=== PATIENT | male | born 1980 | race American Indian/Alaskan Native ===

== ENCOUNTER 2019-02-01 15:08 | Emergency (ER) | payer MEDICAID ==
--- NOTE | 2019-02-01 15:48 | Emergency Department Report ---
Blank Doc - Documentation Documentation: 38-year-old male that presents with abdominal pain body aches, and diarrhea. HX of HIV. This initial assessment/diagnostic orders/clinical plan/treatment(s) is/are subject to change based on patient's health status, clinical progression and re- assessment by fellow clinical providers in the ED. Further treatment and workup at subsequent clinical providers discretion. Patient/guardians urged not to elope from the ED as their condition may be serious if not clinically assessed and managed. Initial orders include: 1- Patient sent to [facility] for further evaluation and treatment 2- labs 3- UA
[2019-02-01 16:30] LABS: Basophils % (Auto) 0.1 % (0.0-1.8); Eosinophils # (Auto) 0.1 K/mm3 (0.0-0.4); Eosinophils % (Auto) 0.9 % (0.0-4.3); Hematocrit 38.7 % (35.5-45.6); Hemoglobin 13.1 gm/dl (11.8-15.2); Lymphocytes % (Auto) 31.7 % (13.4-35.0); Mean Corpuscular HGB Conc 34 % (32-34); Mean Corpuscular Volume 95 fl (84-94); Monocytes # (Auto) 0.7 K/mm3 (0.0-0.8); Monocytes % (Auto) 7.1 % (0.0-7.3); Platelet Count 166 K/mm3 (140-440); Red Blood Count 4.07 M/mm3 (3.65-5.03); Red Cell Distribution Width 16.9 % (13.2-15.2)
[2019-02-01 16:42] LABS: Bilirubin,Urine NEG (Negative); Blood,Urine NEG (Negative); Color,Urine Yellow (Yellow); Mucus,Urine FEW /HPF
[2019-02-01 16:59] LABS: Alanine Aminotransferase 19 units/L (7-56); Albumin 3.9 g/dL (3.9-5); BUN/Creatinine Ratio 11; Blood Urea Nitrogen 9 mg/dL (9-20); Hemolysis Index 43
[2019-02-01] MEDS ORDERED: ONDANSETRON 4 MG ODT TAB PO ONE (19:34)
[2019-02-01] MEDS ORDERED: AMOXICILLIN/K CLAV 875/125MG TAB PO ONE (19:34)
[2019-02-01] MEDS ORDERED: oxyCODONE /ACETAMINOPHEN 5-325MG TAB PO ONE (19:34)
[2019-02-01 19:57] VITALS: BP 141/103
--- NOTE | 2019-02-01 20:03 | Emergency Department Report ---
ED General Adult HPI - General Chief complaint: Nausea/Vomiting/Diarrhea Stated complaint: PAIN ALL OVER Time Seen by Provider: 02/01/19 15:47 Source: patient Mode of arrival: Ambulatory Limitations: No Limitations - History of Present Illness Initial comments: Patient is a 38-year-old -[place] male with a history of HIV who presents to the ED with complaint of acute onset persistent painful swollen right mandible with diffuse multiple dental caries and severely painful premolar and molar toothache for the last 4 days. Patient denies fever, chills, nausea, vomiting, dizziness, headache, sore throat, chest pain or shortness of breath or cough. Patient states that he has been taking [id number] pain medications with no relief. MD Complaint: right mandibular pain and swelling; dental abscess -: Sudden, days(s) (4) Location: mouth Radiation: non-radiation Severity scale (0 -10): 7 Quality: aching, sharp Consistency: constant Improves with: none Worsens with: eating Associated Symptoms: denies other symptoms, loss of appetite. denies: confusion, chest pain, cough, diaphoresis, fever/chills, headaches, malaise, nausea/vomiting, rash, seizure, shortness of breath, weakness, other Treatments Prior to Arrival: none - Related Data Previous Rx's Medication Instructions Recorded Last Taken Type Clindamycin [Clindamycin CAP] 300 mg PO Q8HR #60 capsule 02/01/19 Unknown Rx Ketorolac [Toradol] 10 mg PO Q8H PRN #20 tablet 02/01/19 Unknown Rx traMADoL [Ultram] 50 mg PO Q6HR PRN #12 tablet 02/01/19 Unknown Rx Allergies Allergy/AdvReac Type Severity Reaction Status Date / Time No Known Allergies Allergy Unverified 02/01/19 15:11 ED Review of Systems ROS: Stated complaint: PAIN ALL OVER Other details as noted in HPI Constitutional: denies: chills, fever Eyes: denies: eye pain, eye discharge, vision change ENT: dental pain, other (swollen, severely tender right mandible with severely painful premolar and molar teeth, with multiple dental caries). denies: ear pain, throat pain Respiratory: denies: cough, shortness of breath, wheezing Cardiovascular: denies: chest pain, palpitations Endocrine: no symptoms reported Gastrointestinal: denies: abdominal pain, nausea, diarrhea Genitourinary: denies: urgency, dysuria Musculoskeletal: denies: back pain, joint swelling, arthralgia Skin: denies: rash, lesions Neurological: denies: headache, weakness, paresthesias Psychiatric: denies: anxiety, depression Hematological/Lymphatic: denies: easy bleeding, easy bruising ED Past Medical Hx - Past Medical History Previous Medical History?: Yes Hx HIV: Yes - Surgical History Past Surgical History?: No - Social History Smoking Status: Current Every Day Smoker Substance Use Type: Alcohol, Marijuana - Medications Home Medications: Home Medications Medication Instructions Recorded Confirmed Last Taken Type Clindamycin [Clindamycin CAP] 300 mg PO Q8HR #60 capsule 02/01/19 Unknown Rx Ketorolac [Toradol] 10 mg PO Q8H PRN #20 tablet 02/01/19 Unknown Rx traMADoL [Ultram] 50 mg PO Q6HR PRN #12 tablet 02/01/19 Unknown Rx ED Physical Exam - General Limitations: No Limitations General appearance: alert, in no apparent distress - Head Head exam: Present: atraumatic, normocephalic, normal inspection - Eye Eye exam: Present: normal appearance, PERRL, EOMI Pupils: Present: normal accommodation - ENT ENT exam: Present: mucous membranes moist, TM's normal bilaterally, normal external ear exam, other (swollen, severely tender right mandible with severely tender premolar and molar teeth, with multiple dental caries) - Neck Neck exam: Present: normal inspection, full ROM, lymphadenopathy - Respiratory Respiratory exam: Present: normal lung sounds bilaterally. Absent: respiratory distress, wheezes, rhonchi, chest wall tenderness, accessory muscle use, prolonged expiratory - Cardiovascular Cardiovascular Exam: Present: regular rate, normal rhythm, normal heart sounds. Absent: systolic murmur, diastolic murmur, rubs, gallop - GI/Abdominal GI/Abdominal exam: Present: soft, normal bowel sounds. Absent: tenderness, hyperactive bowel sounds - Extremities Exam Extremities exam: Present: normal inspection, full ROM, normal capillary refill - Back Exam Back exam: Present: normal inspection, full ROM. Absent: tenderness, muscle spasm, paraspinal tenderness - Neurological Exam Neurological exam: Present: alert, oriented X3, CN II-XII intact, normal gait, reflexes normal - Psychiatric Psychiatric exam: Present: normal affect, normal mood - Skin Skin exam: Present: warm, dry, intact, normal color. Absent: rash ED Course Vital Signs 02/01/19 02/01/19 02/01/19 15:47 19:45 19:57 Temperature 98.9 F 98.0 F Pulse Rate 79 66 Respiratory 18 18 18 Rate Blood Pressure 124/89 141/103 O2 Sat by Pulse 100 99 99 Oximetry ED Medical Decision Making - Lab Data Result diagrams: 02/01/19 16:01 02/01/19 16:01 - Medical Decision Making This is a 38-year-old -[place] male with a history of HIV presented to the ED with severe right mandibular premolar and molar toothache with swollen mandible for 4 days. In the ED, patient is alert and oriented 3 and is not in distress with normal vital signs but appears to be in pain. Patient was treated for pain in the ED and also given initial oral antibiotics. Patient will discharged home on pain medications or antibiotics and was advised to follow-up with a dentist in the next 2-3 days for reevaluation or primary care physician in 5-7 days. Patient was also advised to return to the ED immediately if symptoms get worse. - Differential Diagnosis dental abscess; dental caries; gingivitis Critical care attestation.: If time is entered above; I have spent that time in minutes in the direct care of this critically ill patient, excluding procedure time. ED Disposition Clinical Impression: Dental abscess, Dental caries, Acute gingivitis Disposition: TO HOME OR SELFCARE Is pt being admited?: No Does the pt Need Aspirin: No Condition: Stable Instructions: Dental Abscess (ED), Gingivitis (ED), Dental Caries (ED) Additional Instructions: Take medication with food, drink plenty of fluids and follow-up with your primary care physician at [facility] in 5-7 days. Consider following up with a dentist as soon as possible. Return to the ED immediately if symptoms get worse. Prescriptions: Clindamycin [Clindamycin CAP] 300 mg PO Q8HR #60 capsule Ketorolac [Toradol] 10 mg PO Q8H PRN #20 tablet PRN Reason: Pain traMADoL [Ultram] 50 mg PO Q6HR PRN #12 tablet PRN Reason: Pain Referrals: [facility] [Outside] - 3-5 Days Time of Disposition: 20:00 Print Language: GEORGI[place]
== END 2019-02-01 20:10 | disposition home or self-care (01) ==
LOC: ED 15:08
DX: K04.7 Periapical abscess without sinus (principal); K05.00 Acute gingivitis, plaque induced; Z21 Asymptomatic human immunodeficiency virus [HIV] infection status; F17.200 Nicotine dependence, unspecified, uncomplicated; F12.10 Cannabis abuse, uncomplicated; Z79.899 Other long term (current) drug therapy
CPT/HCPCS: 36415; 80053; 81001; 83690; 85025; 87086; Q0162